=== PATIENT | female | born 1990 | race Two or more races ===

== ENCOUNTER 2018-10-26 06:31 | Inpatient (IN) | payer OTHER ==
[2018-10-15 17:22] VITALS: BMI 40.5
[2018-10-26] MEDS ORDERED: HEPARIN NA (PORCINE) 5,000 UNITS/ML 1ML VIAL ONE (07:04)
[2018-10-26] MEDS ORDERED: MIDAZOLAM HCL 2 MG/2 ML SINGLE DOSE VIAL ONE (07:58)
[2018-10-26] MEDS ORDERED: SUCCINYLCHOLINE CHLORIDE 200 MG/10 ML VIAL ONE (07:58)
[2018-10-26] MEDS ORDERED: PROPOFOL 20 ML ONE ×2 (07:58→08:17)
[2018-10-26] MEDS ORDERED: ceFAZolin SODIUM 1 GM VIAL ONE ×4 (08:24→15:12)
[2018-10-26] MEDS ORDERED: BUPIVACAINE HCL/PF 2.5 MG/ML - 30 ML VIAL IJ ONE (08:26)
[2018-10-26] MEDS ORDERED: BUPIVACAINE LIPOSOME/PF (EXPAREL) 266 MG/20 ML VIAL ONE (08:27)
[2018-10-26] MEDS ORDERED: DEXAMETHASONE SOD PHOSPHATE 4 MG/1 ML VIAL ONE (08:41)
[2018-10-26] MEDS ORDERED: ONDANSETRON 4 MG/2 ML VIAL ONE ×2 (08:41→13:24)
[2018-10-26] MEDS ORDERED: ROCURONIUM BROMIDE 50 MG/5 ML VIAL ONE (09:14)
[2018-10-26] MEDS ORDERED: PHENYLEPHRINE HCL 10 MG/1 ML SINGLE DOSE VIAL ONE (10:19)
[2018-10-26] MEDS ORDERED: HYDROmorphone HCL/PF 1 MG/ML AMP ONE (11:25)
[2018-10-26] MEDS ORDERED: BUPIVACAINE LIPOSOME/PF (EXPAREL) 266 MG/20 ML VIAL NR ONE (14:07)
[2018-10-26] MEDS ORDERED: BUPIVACAINE HCL/PF 0.25% (2.5MG/ML) 10 ML VIAL IJ ONE (14:08)
[2018-10-26] MEDS ORDERED: oxyCODONE HCL 5 MG TABLET PO PRN (14:43)
[2018-10-26] MEDS ORDERED: ONDANSETRON 4 MG/2 ML VIAL IVPB PRN (14:44)
[2018-10-26] MEDS ORDERED: LACTATED RINGERS SOLUTION 1,000 ML IV SCH (14:45)
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
[2018-10-26] MEDS ORDERED: ACETAMINOPHEN INJECTION 100 ML IVPB ONE (15:58)
[2018-10-26] MEDS: ACETAMINOPHEN 1000 MG/100 ML VIAL (NON FORMULARY) IVPB PRN (16:00)
[2018-10-26] MEDS: LACTATED RINGERS SOLUTION 1,000 ML IV SCH (16:30)
[2018-10-26] MEDS: CEFAZOLIN 1 GM/D5W 1 GM/50 ML BAG IVPB SCH ×2 (16:39→21:16)
[2018-10-26] MEDS: oxyCODONE HCL 5 MG TABLET PO PRN ×2 (16:43→20:00)
[2018-10-26] MEDS: morphine SULFATE 4 MG/ML VIAL IVPUSH PRN (22:22)
[2018-10-27] MEDS: oxyCODONE HCL 5 MG TABLET PO PRN (00:30)
[2018-10-27] MEDS: morphine SULFATE 4 MG/ML VIAL IVPUSH PRN ×2 (02:23→07:34)
[2018-10-27] MEDS: CEFAZOLIN 1 GM/D5W 1 GM/50 ML BAG IVPB SCH ×4 (03:10→20:07)
[2018-10-27] MEDS: ACETAMINOPHEN 1000 MG/100 ML VIAL (NON FORMULARY) IVPB PRN (05:25)
--- NOTE | 2018-10-27 07:39 | PN ---
Progress Note (short form) - Note Progress Note: POD 1 fever overnight to 101. Minimally using IS SAEED's thin without evidence of bleed Ambulating, sq heparin started All tissues viable without collection or infection Last night c/o tingling to the right radial three fingers, now mostly resolved with elevation On exam, slight tingling only tot he thumb, but does have sensation and can use thumb to poultry picking machine tender coin. Continue elevation, IS, ambulation Anesthesia to see patient for pain management. Plan discharge tomorrow.
[2018-10-27] MEDS: KETOROLAC TROMETHAMINE 30 MG/1 ML VIAL IVPUSH SCH ×3 (08:38→23:31)
[2018-10-27] MEDS: ACETAMINOPHEN 325 MG TABLET (FP) PO SCH ×3 (08:50→20:07)
[2018-10-27] MEDS: HEPARIN NA (PORCINE) 5,000 UNITS/ML 1ML VIAL SQ SCH ×2 (10:09→21:46)
[2018-10-27] MEDS: HYDROmorphone HCL 2 MG TABLET PO PRN (11:36)
--- NOTE | 2018-10-27 12:50 | PN ---
Progress Note (short form) - Note Progress Note: ANESTHESIA POSTOP 28 YO FEMALE POD#1 S/P R LATISSIMUS DORSI FLAP Patient sitting in chair, eating. Reports pain is better controlled. Tolerating PO. Ambulating without difficulty VSS, Afebrile Continue current care.
[2018-10-27] MEDS: HYDROmorphone HCL CARPU-JECT 1 MG/1 ML DISP.SYRIN IVPUSH PRN ×2 (14:07→22:17)
[2018-10-27] MEDS: LACTATED RINGERS SOLUTION 1,000 ML IV SCH (15:22)
[2018-10-28] MEDS: CEFAZOLIN 1 GM/D5W 1 GM/50 ML BAG IVPB SCH ×2 (03:24→09:33)
[2018-10-28] MEDS: ACETAMINOPHEN 325 MG TABLET (FP) PO SCH ×3 (03:24→13:18)
[2018-10-28 06:29] VITALS: BP 139/61; PULSE 98; TEMP 99.9
--- NOTE | 2018-10-28 07:48 | PN ---
Progress Note (short form) - Note Progress Note: POD 2 Hand symptoms completely resolved Pain well controlled Ambulating All tissues viable without infection or collection VSS AF SAEED thin and working OK for d/c home with instructions
[2018-10-28] MEDS: HYDROmorphone HCL 2 MG TABLET PO PRN (09:31)
[2018-10-28] MEDS: HEPARIN NA (PORCINE) 5,000 UNITS/ML 1ML VIAL SQ SCH (09:33)
[2018-10-28] MEDS: KETOROLAC TROMETHAMINE 30 MG/1 ML VIAL IVPUSH SCH (09:34)
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
--- NOTE | 2018-10-28 10:49 | PROC ---
Procedure Note Procedure: 16Fr Oliver catheter placed in OR for prolonged case on 10/26 by CASSIA. Oliver placed utilizing sterile precautions. Immediate return of yellow urine. Oliver removed upon completion of case
--- NOTE | 2018-10-28 15:11 | PATH ---
Surgical Pathology Report Patient Name: PRIYANKA MONTOYA Med. Rec. #: [id number] /Age/Gender: 1990 (Age: 28) / F Account: [id number] Location: [facility] Taken: 10/26/2018 Received: 10/26/2018 Reported: 10/28/2018 Physicians: Demarco Vides Specimen(s) Received RIGHT BREAST TISSUE Clinical History None given Final Diagnosis BREAST TISSUE, RIGHT, EXCISION: BENIGN BREAST TISSUE. SKIN WITH NO PATHOLOGIC FINDINGS. Electronically Signed Ashleigh Adams M.D. Gross Description Received in formalin labeled "right breast tissue," is an 11 g, 6.3 x 5.0 x 0.8 cm aggregate multiple ag-yellow, unoriented portions of fibroadipose tissue and ag skin. Sectioning reveals foci of white fibrous tissue. Braille Proofreader sections are submitted in one cassette. /10/27/2018 saudi10/27/2018
== END 2018-10-28 13:00 | disposition home or self-care (01) | DRG 363 ==
LOC: UNDOADMIN 06:31 → FM/S 06:31 → EDSTATUS 08:00 → FASUSAT 14:44 → FM/S 14:44
PROVIDERS: ADMIT Plastic Surgery; ATTEND Plastic Surgery
PROC: 0HRT075 Replacement of Right Breast using Latissimus Dorsi Myocutaneous Flap, Open Approach (ICD-10-PCS; 2018-10-26)
PROC: 0H0T07Z Alteration of Right Breast with Autologous Tissue Substitute, Open Approach (ICD-10-PCS; principal; 2018-10-26 08:00)
DX: N64.82 Hypoplasia of breast (principal); M95.4 Acquired deformity of chest and rib; T21.01XS Burn of unspecified degree of chest wall, sequela; Z42.8 Encounter for other plastic and reconstructive surgery following medical procedure or healed injury
CPT/HCPCS: 84703; 88305-TC; 94760; J0131; J1644

== ENCOUNTER 2019-02-05 06:32 | Day surgery (SDC) | payer OTHER ==
[2019-01-29 17:59] VITALS: BMI 37.8
[2019-02-05] MEDS ORDERED: SUCCINYLCHOLINE CHLORIDE 200 MG/10 ML SYRINGE ONE (07:33)
[2019-02-05] MEDS ORDERED: PROPOFOL 20 ML ONE ×6 (07:33→11:19)
[2019-02-05] MEDS ORDERED: MIDAZOLAM HCL 2 MG/2 ML SINGLE DOSE VIAL ONE (07:33)
[2019-02-05] MEDS ORDERED: ROCURONIUM BROMIDE 50 MG/5 ML SYRINGE ONE (08:17)
[2019-02-05] MEDS ORDERED: LIDOCAINE HCL/PF 2% SDV 5ML VIAL ONE (08:22)
[2019-02-05] MEDS ORDERED: DEXAMETHASONE SOD PHOSPHATE 4 MG/1 ML VIAL ONE ×2 (08:22→11:33)
[2019-02-05] MEDS ORDERED: ONDANSETRON 4 MG/2 ML VIAL ONE ×2 (08:22→11:33)
[2019-02-05] MEDS ORDERED: ceFAZolin SODIUM 1 GM VIAL ONE (08:29)
[2019-02-05] MEDS ORDERED: HYDROmorphone HCL/PF 1 MG/ML AMP ONE ×2 (08:31→09:52)
[2019-02-05] MEDS ORDERED: EPINEPHrine/PF 1 MG/1 ML (1:1,000) AMPULE ONE (09:04)
[2019-02-05] MEDS ORDERED: LIDOCAINE HCL 1% PRESERVATIVE FREE - 30ML VIAL ONE (09:04)
[2019-02-05] MEDS ORDERED: oxyCODONE HCL 5 MG TABLET PO PRN ×3 (12:09→12:10)
[2019-02-05] MEDS ORDERED: ONDANSETRON 4 MG/2 ML VIAL IVPUSH PRN (12:09)
[2019-02-05] MEDS ORDERED: ONDANSETRON 4 MG/2 ML VIAL IVPB PRN (12:10)
--- NOTE | 2019-02-05 12:13 | OP ---
Operative Note - Note: Operative Date: 02/05/19 Pre-Operative Diagnosis: right breast deformity and asymetry from reconstruction Operation: revision of right breas reconstruction andflap reconstruction of back Post-Operative Diagnosis: Same as Pre-op Anesthesia: General Operative Report Dictated: Yes
[2019-02-05] MEDS ORDERED: LACTATED RINGERS SOLUTION 1,000 ML IV SCH ×2 (12:15)
[2019-02-05] MEDS ORDERED: FAMOTIDINE 20 MG PREMIXED IVPB IVPB ONE (12:30)
[2019-02-05] MEDS ORDERED: FAMOTIDINE 20 MG/50 ML IVPB 20 MG/50 ML MG IVPB ONE (12:31)
--- NOTE | 2019-02-05 14:04 | OP ---
DATE OF OPERATION: 02/05/2019 TITLE OF PROCEDURE: 1. Revision of right-sided breast reconstruction. 2. Local flap reconstruction of back for correction of donor site deformity from right breast reconstruction. ATTENDING SURGEON: Demarco Mancera MD WELL REACTIVATOR OPERATOR: There are no assistants. ANESTHESIA: General endotracheal anesthesia. PROCEDURE FOLLOWS: The patient was seen in the holding area. She was marked of all incisions and resulting scars. She is awake and aware of all this. She is aware of all risks, benefits, alternatives, and limitations to the operation. Sequential compression stockings and JASMYN hose are applied. Two grams of Ancef were given preoperatively. She was brought to the operating room, placed in the supine position. She was given general anesthesia, after which, she was transferred onto a Thad frame in a prone position. Position was carefully checked by surgical, anesthesia, and nursing staff. All appropriate positioning aids were used including Thad frame, knee pads, elbow pads, and a pillow underneath the knees. Patient was then prepped and draped in standard surgical fashion. A time-out was called. Patient, procedure, side, and sites were verified. At this point, attention was first directed to the patients right side where the lateral extension of the breast fold as it connected with the patients accessory breast laterally was marked for excision. This was excised in an elliptical pattern down to the level of the latissimus dorsi flap, which had been mobilized towards the initial breast reconstruction. The combination of excess latissimus fat as well as [place] posterior axillary breast tissue was excised. The wound was copiously irrigated, hemostasis was meticulously achieved, and a closure was performed with a series of interrupted deep fascial 0 Vicryl suture followed by a series of interrupted buried deep dermal 2-0 Vicryl sutures followed by a series of interrupted skin hawk. Attention was then directed to a lateral distortion/dog ear from the right-sided latissimus dorsi flap donor site. This was excised at its full length. A wide bipedicled skin bridge was left between the 2 parallel incisions in order to allow for good vascularity, which was maintained and assured. This excision was mobilized from inferiorly in order to close without tension. The advancement flap was advanced by incising of medial and lateral Burows triangle, which were closed primarily as donor sites. The donor sites were closed with a series of interrupted buried deep dermal 2-0 Vicryl sutures followed by a series of interrupted skin hawk. The flaps were then closed to one another with a series of interrupted 0 Vicryl deep Scarpas layer fascial sutures approximating space. Skin was then closed with a series of interrupted 2-0 Vicryl buried deep dermal sutures followed by a series of interrupted skin hawk. Attention was then directed towards the patients left side where there is a severe asymmetry to the donor site from the right-sided breast reconstruction. This was addressed with a combination of suction-assisted lipectomy as well as direct excision of a back fat extending from the lateral extent of the breast into the back. This was marked. The area of liposuction was also marked and was infiltrated using a standard wetting solution of 20 mL of 1% lidocaine and 1 ampule of 1:100,000 epinephrine in a liter of normal saline. Twenty-five minutes was given for hemostatic effect of the wetting solution. While this was being done, the marked area for excision was excised down to the level of the latissimus dorsi superficial fascia. Perforating blood vessels were ligated and divided. Hemostasis was meticulously achieved. The skin was undermined both inferiorly and superiorly in order to create flaps so that standard folds in her anatomy were unfolded. Retaining ligaments were divided. The flaps were then secured to one another after the medial and lateral donor sites were excised. These Burows triangle sites were excised and closed primarily with a series of interrupted 2-0 Vicryl deep dermal sutures followed by a series of interrupted skin hawk. A size 10 flat SAEED drain was brought out through a lateral stab wound incision secured with a 2-0 silk drain suture. The liposuction was then performed before final inset of the reconstructive flaps. This liposuction was performed with a combination of 4 and 5 mm liposuction cannulas, traditional liposuction technique was used. The total lipoaspirate and infiltrate for this case were 450 mL. The end-point is smooth even contour. The closure of the back flaps was then closed with a series of interrupted Scarpas layer 0 Vicryl sutures with several quilting elements to the deep extent of the wound to close space. The skin was then closed with a series of interrupted buried deep dermal 2-0 Vicryl suture followed by a series of interrupted skin hawk. The patient was then dressed with 4x4, ABD, and Hypafix tape. She was transferred with all assistance onto her stretcher in a supine position. She was woken up from anesthesia, transferred to recovery without complications. DEMARCO MANCERA M.D. [id number]
[2019-02-05 14:15] VITALS: TEMP 98.2
[2019-02-05] MEDS ORDERED: oxyCODONE HCL 5 MG TABLET ONE (14:45)
[2019-02-05 14:57] VITALS: PULSE 98
[2019-02-05 15:39] VITALS: BP 110/64
--- NOTE | 2019-02-09 14:01 | PATH ---
Surgical Pathology Report Patient Name: PRIYANKA MONTOYA [facility]. Rec. #: [id number] /Age/Gender: 1990 (Age: 28) / F Account: [id number] Location: [facility] Taken: 02/05/2019 Received: 02/05/2019 Reported: 02/09/2019 Physicians: Demarco Vides Specimen(s) Received SKIN & FAT Clinical History Breast deformity Final Diagnosis SKIN AND FAT, RESECTION: SKIN WITH SCAR AND UNDERLYING ADIPOSE TISSUE. GROSS EXAMINATION ONLY. Electronically Signed Gertrudis Muñoz M.D. Gross Description Received in formalin labeled "skin and fat," is a 1074 g, 23.0 x 20.0 x 3.5 cm aggregate of 3 ag-brown, unoriented portions of skin with underlying soft tissue. One of the portions displays a healed scar. The remaining epidermal surfaces are unremarkable. Sectioning reveals yellow, lobulated adipose tissue with focal firm fibrous tissue and fat necrosis in the area of the scar. No sections are submitted, gross only. /02/08/2019 saudi/02/08/2019
== END 2019-02-05 15:56 | disposition home or self-care (01) ==
LOC: FASU 06:32
PROVIDERS: ATTEND Plastic Surgery
PROC: 0HX6XZZ Transfer Back Skin, External Approach (ICD-10-PCS; 2019-02-05)
PROC: 0HUT07Z Supplement Right Breast with Autologous Tissue Substitute, Open Approach (ICD-10-PCS; principal; 2019-02-05 08:55)
DX: N65.0 Deformity of reconstructed breast (principal); N65.1 Disproportion of reconstructed breast; L91.0 Hypertrophic scar
CPT/HCPCS: 81025; 88300-TC; 94760